=== PATIENT | male | born 1960 | race African-American/Black ===

== ENCOUNTER 2017-11-14 23:55 | Inpatient (IN) | payer MEDICARE ==
[~2017-11-14] VITALS: Ht 160 cm; Wt 61.1 kg
--- NOTE | ~2017-11-14 | OP ---
PATIENT NAME: EHSAN JAMES MEDICAL RECORD: [id number] :62 LOCATION:D.M2 D.2109 ADMISSION DATE:11/15/17 SURGEON: PERLA CALVO MD DATE OF OPERATION: 11/19/2017 REFERRING PHYSICIAN: Dr. Maravilla and Dr. Phipps and Dr. Real. PREOPERATIVE DIAGNOSES: Superior vena cava syndrome along with end-stage renal disease and other mechanical complication of arterial venous fistula. OPERATION PERFORMED: Removal and replacement of right internal jugular tunneled HemoSplit dialysis catheter and superior vena cavogram. Then, ultrasound-guided access of left upper extremity brachiobasilic AV fistula and balloon angioplasty of superior vena cava stenosis and fistulogram. SURGEON: Perla Calvo MD ANESTHESIA: General endotracheal. PREOPERATIVE NOTE: Mr. James is an unfortunate patient from [facility]. He is 57 years old. He has end-stage renal disease and is on chronic hemodialysis in [place]. He has a tunneled dialysis catheter in his right internal jugular vein position and also has a functioning left brachiobasilic AV fistula, which has been minimally translocated and he has 2 old grafts in the left arm brachial axillary or brachial basilic additionally. He is a poor historian. He says that his fistula has been being accessed. At any rate, he is brought to the operating room at this time for angiography and hopefully angioplasty of the central vein stenosis present to relieve his superior vena cava syndrome. The patient may require balloon expanded stent graft to treat central vein stenosis, if not at this sitting then perhaps at the next. PROCEDURE IN DETAIL: With the patient under general endotracheal anesthesia in supine position, he was prepped and draped in a sterile manner. I first removed the right internal jugular tunneled dialysis catheter over a guidewire and performed a superior venacavogram, which demonstrated a significant stenosis of about 50% or more involving the superior vena cava immediately below the confluence of the brachiocephalic veins. I then went to the left arm and accessed the left brachiobasilic AV fistula. This was done with ultrasound guidance and advanced a guidewire and catheter to the subclavian vein and repeated the superior vena cavogram. The quality of the imaging from the C-arm this evening was rather poor and I do not know what exactly the malfunction was, but the images were barely adequate. I did not see any evidence of any other central vein stenosis and I was able to place the diagnostic catheter in the internal jugular vein and in the brachiocephalic vein and performed additional contrast injections without finding of other pathology. I then advanced a 0.035 guidewire across the superior vena cava stenosis and into the inferior vena cavogram and then passed an [place] angioplasty balloon 14 mm x 4 cm and dilated the superior vena cava stenosis. This demonstrated a waist with full effacement at only 2 atmospheres. Subsequent contrast injections were unclear or really not diagnostic, but it appears that the stenosis was successfully dilated. Whether there is residual or not, I could not tell how much from the images we were able to get. I removed the hardware from the left arm and obtained hemostasis there at the insertion site with a [id number]-wu-[id number] Prolene suture. I then inserted a new HemoSplit tunneled dialysis catheter 19 cm in length. Using the guidewire already in place in the right internal jugular vein, the catheter OPERATIVE REPORT [id number] EHSAN JAMES passed nicely into the right atrium. Contrast studies were done, which confirmed at least proper positioning in the right atrium at the tip of the catheter. The catheter lumens were both accessed and aspirated, free return of blood from each was confirmed. They were then flushed with saline and then Hep-Lock solution, clamped and capped. The catheter was sutured to the skin near the entry site with 2-0 Prolene. The cervical incision was closed with interrupted inverted subcuticular 3-0 Vicryl and Dermabond glue. That site was dressed with Maxorb Ag, Tegaderm and Cavilon skin prep. A chlorhexidine Biopatch was placed over the catheter at the exit site and that was dressed then with a standard CVL dressing. At that point with a functional TVC in the right IJV and a functioning though awkward left upper extremity brachiobasilic AV fistula, he was awakened and extubated and taken to the recovery room in stable condition. Blood loss during the operation was insignificant and unreplaced. All sponges, instruments and needles were accounted for. No drain was used and no surgical specimen was submitted for histopathology. The patient will be kept in head up or reverse Trendelenburg or Matam[place]os position overnight. He will have dialysis tomorrow and hopefully his head and neck and upper extremity edema will resolve as a result of the superior vena cava angioplasty. This will likely need to be repeated and if it needs to be repeated frequently or if it is clear on subsequent imaging that this is a very elastic stenosis, then it may be advisable to place a balloon expandable stent in the superior vena cava. Also, I will need to discuss with radiology the quality of the imaging done this evening and see if there is anything we need to do to fix it such as have a C-arm service. TRANSINT:[id number] Voice Confirmation ID: [id number] DOCUMENT ID: [id number] PERLA CALVO MD at 1241 CC: LOBO REAL and LOBO PHIPPS [id number] DICTATION DATE: 12/05/17 1024 BAG CUTTER: 12/05/17 1434 DIS IN 11/21/17 [id number] [place] [address]
[~2017-11-14 23:55] MED LIST: COZAAR100 MG PO; METOPROLOL TART50 MG PO; NEURONTIN 300300 MG PO; NORCO 7.5/325 T1 TA1 PO; NORVASC2.5 MG PO; OMEPRAZOLE20 M1 PO; PHOSLO667 MG PO; RENVELA800 MG PO; SENSIPAR60 MG PO; ULTRAM50 MG PO; ZYLOPRIM100 MG PO
[2017-11-15 01:00] VITALS: BP 101/65
[2017-11-15] MEDS ORDERED: VENTOLIN HFA18 GM INH (01:03)
[2017-11-15] MEDS ORDERED: RENA-VITE TABL0.8 MG PO (01:04)
[2017-11-15] MEDS ORDERED: MULTAQ400 MG PO (01:05)
[2017-11-15] MEDS ORDERED: ELIQUIS2.5 MG PO (01:06)
[2017-11-15] MEDS ORDERED: BAYER CHEWABLE81 MG PO (01:09)
[2017-11-15] MEDS ORDERED: PRAVACHOL40 MG PO (01:10)
[2017-11-15 03:54] VITALS: BP 118/73; BMI 23.5
[2017-11-15 04:30] VITALS: BP 130/64
[2017-11-15 08:12] LABS: BASOPHILS 0 % (0-2); EOSINOPHILS 4.3 % (0-7); HEMATOCRIT 37.9 % (42.0-54.0); HEMOGLOBIN 12.4 g/dL (13.5-17.5); IMMATURE GRANULOCYTES 1.1 % (0-5); LYMPHOCYTES 23.3 % (15-50); MCHC 32.7 g/dL (31.0-37.0); MCV 88.8 fL (80.0-100.0); MEAN PLATELET VOLUME 9.8 fL (7.4-10.4); MONOCYTES 19.7 % (2-11); NEUTROPHILS 51.6 % (40-80); RBC 4.27 10x6/uL (4.20-6.10); RDW 18.1 % (11.5-14.5); WBC 6.3 10x3/uL (4.8-10.8)
[2017-11-15 08:13] LABS: PLATELET COUNT 243 10x3/uL (130-400)
[2017-11-15 08:21] LABS: INR 1.45 (0.85-1.17); PROTIME 17.2 SECONDS (11.6-15.0)
[2017-11-15 08:43] LABS: ALBUMIN 2.9 g/dL (3.4-5.0); ANION GAP 18.3 mmol/L (8-16); BILIRUBIN - TOTAL 0.7 mg/dL (0.2-1.3); CARBON DIOXIDE 22.4 mmol/L (21.0-32.0); CREATININE - SERUM 12.6 mg/dL (0.6-1.3); POTASSIUM - SERUM 4.7 mmol/L (3.5-5.1); PROTEIN - SERUM 6.7 g/dL (6.4-8.2)
[2017-11-15 08:59] VITALS: BP 102/60
[2017-11-15 10:28] VITALS: BMI 23.3
[2017-11-15 12:00] VITALS: BP 103/69
[2017-11-15 12:09] VITALS: Ht 160 cm; Wt 61.1 kg
[2017-11-15 16:50] VITALS: BP 130/82
[2017-11-16 01:00] VITALS: BP 121/62
[2017-11-16 05:30] VITALS: BP 95/60
[2017-11-16 05:32] LABS: ANION GAP 18.1 mmol/L (8-16); CALCIUM 8.8 mg/dL (8.5-10.1); CARBON DIOXIDE 24.4 mmol/L (21.0-32.0); CREATININE - SERUM 9.8 mg/dL (0.6-1.3); POTASSIUM - SERUM 4.5 mmol/L (3.5-5.1)
[2017-11-16 05:33] LABS: BASOPHILS 0.1 % (0-2); EOSINOPHILS 2.6 % (0-7); HEMATOCRIT 38.3 % (42.0-54.0); HEMOGLOBIN 12.6 g/dL (13.5-17.5); IMMATURE GRANULOCYTES 0.5 % (0-5); LYMPHOCYTES 21.9 % (15-50); MCH 29.1 pg (26.0-34.0); MCHC 32.9 g/dL (31.0-37.0); MCV 88.5 fL (80.0-100.0); MONOCYTES 20.7 % (2-11); NEUTROPHILS 54.2 % (40-80); PLATELET COUNT 223 10x3/uL (130-400); RBC 4.33 10x6/uL (4.20-6.10); RDW 18.1 % (11.5-14.5); WBC 7.4 10x3/uL (4.8-10.8)
[2017-11-16 08:54] VITALS: BP 96/52
[2017-11-16 12:33] VITALS: BP 86/46
[2017-11-16 16:34] VITALS: BP 118/69
[2017-11-16 20:00] VITALS: BP 98/51
[2017-11-17 01:00] VITALS: BP 117/61
[2017-11-17 05:00] LABS: BASOPHILS 0.2 % (0-2); EOSINOPHILS 4.6 % (0-7); HEMATOCRIT 36.6 % (42.0-54.0); HEMOGLOBIN 12.1 g/dL (13.5-17.5); IMMATURE GRANULOCYTES 0.3 % (0-5); LYMPHOCYTES 34.8 % (15-50); MCH 28.9 pg (26.0-34.0); MCHC 33.1 g/dL (31.0-37.0); MCV 87.6 fL (80.0-100.0); MEAN PLATELET VOLUME 9.7 fL (7.4-10.4); MONOCYTES 17.7 % (2-11); NEUTROPHILS 42.4 % (40-80); PLATELET COUNT 207 10x3/uL (130-400); RBC 4.18 10x6/uL (4.20-6.10); RDW 18.2 % (11.5-14.5); WBC 5.9 10x3/uL (4.8-10.8)
[2017-11-17 05:27] LABS: ANION GAP 19.3 mmol/L (8-16); CALCIUM 9.1 mg/dL (8.5-10.1); CARBON DIOXIDE 24.7 mmol/L (21.0-32.0); CREATININE - SERUM 12.1 mg/dL (0.6-1.3)
[2017-11-17 06:11] VITALS: BP 122/70
[2017-11-17 09:04] VITALS: BP 112/69
[2017-11-17 11:35] VITALS: BP 135/75
[2017-11-17 15:36] VITALS: BP 132/67
[2017-11-17 20:00] VITALS: BP 123/67
[2017-11-18 01:00] VITALS: BP 115/80
[2017-11-18 04:44] LABS: BASOPHILS 0.2 % (0-2); EOSINOPHILS 4.3 % (0-7); HEMATOCRIT 38.1 % (42.0-54.0); HEMOGLOBIN 12.6 g/dL (13.5-17.5); IMMATURE GRANULOCYTES 0.6 % (0-5); MCHC 33.1 g/dL (31.0-37.0); MCV 87.6 fL (80.0-100.0); MEAN PLATELET VOLUME 9.8 fL (7.4-10.4); MONOCYTES 18.1 % (2-11); NEUTROPHILS 50.8 % (40-80); PLATELET COUNT 211 10x3/uL (130-400); RBC 4.35 10x6/uL (4.20-6.10); RDW 18.2 % (11.5-14.5); WBC 6.3 10x3/uL (4.8-10.8)
[2017-11-18 05:00] VITALS: BP 98/60
[2017-11-18 05:17] LABS: CALCIUM 9.5 mg/dL (8.5-10.1); CARBON DIOXIDE 22.7 mmol/L (21.0-32.0); CREATININE - SERUM 13.7 mg/dL (0.6-1.3)
[2017-11-18 06:05] LABS: ANION GAP 23.1 mmol/L (8-16); POTASSIUM - SERUM 4.8 mmol/L (3.5-5.1)
[2017-11-18 08:48] VITALS: BP 122/79
[2017-11-18 16:40] VITALS: BP 132/65
[2017-11-18 20:11] VITALS: BP 102/74
[2017-11-19] VITALS: BP 108/61
[2017-11-19 05:32] VITALS: BP 107/68
[2017-11-19 05:41] LABS: BASOPHILS 0.2 % (0-2); HEMATOCRIT 37.7 % (42.0-54.0); HEMOGLOBIN 12.5 g/dL (13.5-17.5); IMMATURE GRANULOCYTES 0.4 % (0-5); LYMPHOCYTES 24.7 % (15-50); MCH 29.1 pg (26.0-34.0); MCHC 33.2 g/dL (31.0-37.0); MCV 87.7 fL (80.0-100.0); MEAN PLATELET VOLUME 9.7 fL (7.4-10.4); NEUTROPHILS 53.7 % (40-80); PLATELET COUNT 190 10x3/uL (130-400); RDW 18.1 % (11.5-14.5); WBC 5.3 10x3/uL (4.8-10.8)
[2017-11-19 05:52] LABS: INR 1.32 (0.85-1.17); PROTIME 15.9 SECONDS (11.6-15.0)
[2017-11-19 05:57] LABS: ANION GAP 20.5 mmol/L (8-16); CALCIUM 9.3 mg/dL (8.5-10.1); CARBON DIOXIDE 24.9 mmol/L (21.0-32.0); CREATININE - SERUM 11.8 mg/dL (0.6-1.3); POTASSIUM - SERUM 4.4 mmol/L (3.5-5.1)
[2017-11-19 07:50] VITALS: BP 110/82
[2017-11-19 11:58] VITALS: BP 112/59
[2017-11-19 16:47] VITALS: BP 128/80
[2017-11-19 20:07] VITALS: BP 114/75
[2017-11-20 00:28] VITALS: BP 121/84
[2017-11-20 05:41] VITALS: BP 117/75
[2017-11-20 05:47] LABS: BASOPHILS 0.1 % (0-2); EOSINOPHILS 2.5 % (0-7); HEMATOCRIT 33.9 % (42.0-54.0); HEMOGLOBIN 10.9 g/dL (13.5-17.5); IMMATURE GRANULOCYTES 0.3 % (0-5); LYMPHOCYTES 19.3 % (15-50); MCH 28.3 pg (26.0-34.0); MCHC 32.2 g/dL (31.0-37.0); MCV 88.1 fL (80.0-100.0); MEAN PLATELET VOLUME 10.3 fL (7.4-10.4); MONOCYTES 14.5 % (2-11); NEUTROPHILS 63.3 % (40-80); PLATELET COUNT 182 10x3/uL (130-400); RBC 3.85 10x6/uL (4.20-6.10); RDW 18.1 % (11.5-14.5); WBC 6.7 10x3/uL (4.8-10.8)
[2017-11-20 06:14] LABS: CALCIUM 9.1 mg/dL (8.5-10.1); CARBON DIOXIDE 22.9 mmol/L (21.0-32.0); CREATININE - SERUM 13.7 mg/dL (0.6-1.3)
[2017-11-20 06:17] LABS: ANION GAP 20.8 mmol/L (8-16); POTASSIUM - SERUM 5.7 mmol/L (3.5-5.1)
[2017-11-20 09:16] VITALS: BP 129/83
[2017-11-20 17:05] VITALS: BP 113/68
[2017-11-20 21:25] VITALS: BP 116/76
[2017-11-21 00:50] VITALS: BP 107/70
[2017-11-21 04:50] VITALS: BP 99/64
[2017-11-21 05:53] LABS: BASOPHILS 0.2 % (0-2); EOSINOPHILS 4.3 % (0-7); HEMATOCRIT 33.1 % (42.0-54.0); HEMOGLOBIN 10.8 g/dL (13.5-17.5); IMMATURE GRANULOCYTES 0.2 % (0-5); MCH 28.5 pg (26.0-34.0); MCHC 32.6 g/dL (31.0-37.0); MCV 87.3 fL (80.0-100.0); MEAN PLATELET VOLUME 9.8 fL (7.4-10.4); MONOCYTES 22.3 % (2-11); PLATELET COUNT 157 10x3/uL (130-400); RBC 3.79 10x6/uL (4.20-6.10); WBC 5.4 10x3/uL (4.8-10.8)
[2017-11-21 06:10] LABS: ANION GAP 19.9 mmol/L (8-16); CALCIUM 9.1 mg/dL (8.5-10.1); CARBON DIOXIDE 22.8 mmol/L (21.0-32.0); CREATININE - SERUM 10.5 mg/dL (0.6-1.3); POTASSIUM - SERUM 4.7 mmol/L (3.5-5.1)
[2017-11-21 08:08] VITALS: BP 125/73
[2017-11-21 11:06] VITALS: BP 126/78
== END 2017-11-21 16:17 | disposition home or self-care (01) | DRG 252 ==
LOC: D.M2 23:55
PROVIDERS: Family Medicine; Internal Medicine Nephrology; Surgery
PROC: 5A1D70Z Performance of Urinary Filtration, Intermittent, Less than 6 Hours Per Day (ICD-10-PCS; 2017-11-15)
PROC: 027V3ZZ Dilation of Superior Vena Cava, Percutaneous Approach (ICD-10-PCS; 2017-11-19)
PROC: 05PY33Z Removal of Infusion Device from Upper Vein, Percutaneous Approach (ICD-10-PCS; 2017-11-19)
PROC: 02H633Z Insertion of Infusion Device into Right Atrium, Percutaneous Approach (ICD-10-PCS; 2017-11-19)
PROC: B5181ZZ Fluoroscopy of Superior Vena Cava using Low Osmolar Contrast (ICD-10-PCS; 2017-11-19)
PROC: B51W1ZZ Fluoroscopy of Dialysis Shunt/Fistula using Low Osmolar Contrast (ICD-10-PCS; principal; 2017-11-19 13:30)
DX: I87.1 Compression of vein (principal); N18.6 End stage renal disease; I13.2 Hypertensive heart and chronic kidney disease with heart failure and with stage 5 chronic kidney disease, or end stage renal disease; N25.81 Secondary hyperparathyroidism of renal origin; I50.9 Heart failure, unspecified; Z99.2 Dependence on renal dialysis; K21.9 Gastro-esophageal reflux disease without esophagitis; D63.1 Anemia in chronic kidney disease; I48.91 Unspecified atrial fibrillation; Z72.0 Tobacco use

== ENCOUNTER 2018-01-28 07:18 | Day surgery (SDC) | payer MEDICARE ==
[~2018-01-28] VITALS: Ht 167.6 cm; Wt 63.5 kg
--- NOTE | ~2018-01-28 | OP ---
PATIENT NAME: EHSAN JAMES MEDICAL RECORD: [id number] :62 LOCATION:FRANTZ ADMISSION DATE: SURGEON: PERLA CALVO MD DATE OF OPERATION: 01/28/2018 REFERRED BY: Dr. Rivas and Dr. Real PREOPERATIVE DIAGNOSES: End-stage renal disease on dialysis and dependence on hemodialysis and difficulty of cannulation of his left arm brachial artery basilic vein fistula. POSTOPERATIVE DIAGNOSES: End-stage renal disease on dialysis and dependence on hemodialysis and difficulty of cannulation of his left arm brachial artery basilic vein fistula. OPERATION PERFORMED: Left arm AV fistulogram. SURGEON: Perla Calvo MD ANESTHESIA: General with LMA per Dr. Blount. PREOPERATIVE NOTE: Ehsan James is a 57-year-old -[place] male patient with end-stage renal disease, on chronic hemodialysis. He is presently dialyzing with a left to partially translocated basilic AV fistula. He has had grafts in the left arm before and the successful creation of this fistula, I think was a coup, however, there was little opportunity I think to be able to mobilize and fully translocate the vein as would be ideal. He has been referred back up to us today because of a problem at the dialysis unit with a difficult cannulation. The patient has, earlier this year, presented with a superior vena cava obstruction, in part aggravated by the presence of a tunneled dialysis catheter. I performed an angiogram and balloon angioplasty of his superior vena cava and subsequently his symptoms resolved and his catheter has been removed. He is to have the procedure at [facility] today because of the possibility he will require stenting of superior vena cava or other central vein. Otherwise, he could be done at [facility]. Under anesthesia in supine position, the patient was prepped and draped in a sterile manner. Ultrasound was used to examine the fistula in his left arm. I saw no evidence of stenosis. There was good flow. The fistula was accessed with micropuncture technique using ultrasound guidance and eventually a 7-Swedish introducer was placed. Contrast injection was performed, which revealed good flow in the fistula without any obstruction or stenosis. Flow seemed to be slow in the subclavian vein with I thought possibly a stenosis of the subclavian or brachiocephalic vein. I introduced a diagnostic catheter up into the central venous system and performed additional contrast injections and demonstrated that there was no stenosis of the subclavian brachiocephalic veins or of the superior vena cava. The hardware was removed and hemostasis obtained with a wqcgky-pp-emhgt 4-0 Prolene suture. Sterile dressing was applied and the patient was awakened from his anesthetic and was returned to the recovery room. There was minimal or really no blood loss during the procedure. All sponges, instruments and needles were accounted for. No drain was used and no surgical specimen submitted for histopathology. I think the patient's difficult cannulation is simply related to the difficult OPERATIVE REPORT [id number] EHSAN JAMES anatomy and his arm. I see little at this point that can be done for that. We will be happy to see him again if his problem continues or worsens. We must also be alert to the potential recurrence of superior vena cava obstruction, although there was none now. TRANSINT:[id number] Voice Confirmation ID: [id number] DOCUMENT ID: [id number] [facility]: [facility] JEFF Horan. PERLA CALVO MD at 1410 CC: LOBO REAL [id number] DICTATION DATE: 01/28/18 1208 GAMBLING BROKER: 01/28/18 1230 [facility] 01/28/18 [facility] [address] [place] [address]
[~2018-01-28 07:18] MED LIST changes: +BAYER CHEWABLE81 MG PO; +ELIQUIS2.5 MG PO; +MULTAQ400 MG PO; +PRAVACHOL40 MG PO; +RENA-VITE TABL0.8 MG PO; +VENTOLIN HFA18 GM INH
[2018-01-28 07:37] LABS: BASOPHILS 0.6 % (0-2); EOSINOPHILS 9.7 % (0-7); HEMATOCRIT 37.5 % (42.0-54.0); HEMOGLOBIN 11.8 g/dL (13.5-17.5); IMMATURE GRANULOCYTES 0.2 % (0-5); LYMPHOCYTES 37.5 % (15-50); MCHC 31.5 g/dL (31.0-37.0); MCV 92.1 fL (80.0-100.0); MONOCYTES 14.2 % (2-11); NEUTROPHILS 37.8 % (40-80); RBC 4.07 10x6/uL (4.20-6.10); RDW 19.5 % (11.5-14.5); WBC 5.1 10x3/uL (4.8-10.8)
[2018-01-28 07:38] LABS: PLATELET COUNT 192 10x3/uL (130-400)
[2018-01-28 07:45] LABS: ANION GAP 12.9 mmol/L (8-16); CALCIUM 9.1 mg/dL (8.5-10.1); CARBON DIOXIDE 29.4 mmol/L (21.0-32.0); CREATININE - SERUM 6.5 mg/dL (0.6-1.3); POTASSIUM - SERUM 4.3 mmol/L (3.5-5.1)
[2018-01-28 07:46] LABS: APTT 36.6 SECONDS (22.8-39.4); INR 1.48 (0.85-1.17); PROTIME 17.4 SECONDS (11.6-15.0)
[2018-01-28 08:49] VITALS: BP 99/69; Ht 167.6 cm; Wt 63.5 kg
== END 2018-01-28 13:16 | disposition home or self-care (01) ==
LOC: D.OPS 07:18
PROVIDERS: Surgery
DX: T82.590A Other mechanical complication of surgically created arteriovenous fistula, initial encounter (principal); Y83.8 Other surgical procedures as the cause of abnormal reaction of the patient, or of later complication, without mention of misadventure at the time of the procedure; I12.0 Hypertensive chronic kidney disease with stage 5 chronic kidney disease or end stage renal disease; N18.6 End stage renal disease; Z99.2 Dependence on renal dialysis; Z01.812 Encounter for preprocedural laboratory examination

== ENCOUNTER 2018-05-27 13:55 | Inpatient (IN) | payer MEDICARE ==
[~2018-05-27] VITALS: Ht 167.6 cm; Wt 54.1 kg
--- NOTE | ~2018-05-27 | MORECARE ---
CASE MANAGEMENT DISCHARGE SUMMARY PATIENT: EHSAN WEST UNIT: [id number] ADM DATE: 05/27/18 AGE: 57 : 62 SEX: M ROOM/BED: D.1209 AUTHOR: EDUARDO ABDI PHYSICIAN: REFERRING PHYSICIAN: MELBA MELGAR MD DATE OF SERVICE: 05/28/18 Discharge Plan Patient Name: EHSAN WEST Facility: [facility]:[place] : 1960 Planned Disposition: Anticipated Discharge Date: Discharge Date: Expected LOS: Initial Reviewer: [email or web address] Initial Review Date: 05/27/2018 Generated: 05/28/18 1:14 pm Patient Name: EHSAN WEST Page [phone] at 1214 All edits/amendments must be made on the electronic document DICTATION DATE: 05/28/18 1213 SENIOR SOLUTIONS ARCHITECT: BAKARI 05/28/18 1213 RPT#: [id number] DC DATE: STATUS: ADM IN [facility] [address] [place] [address] END OF REPORT
--- NOTE | ~2018-05-27 | CN ---
PATIENT NAME:EHSAN WEST MEDICAL RECORD: [id number] : 62 [facility] AD[facility] DATE: 05/27/18 ACCOUNT: [id number] CONSULTING PHYSICIAN: KARENA LOMBARDI MD REFERRING PHYSICIAN: MELBA MELGAR MD DATE OF CONSULTATION: 05/28/2018 CARDIOLOGY CONSULTATION DIAGNOSES: 1. Preoperative evaluation cholecystectomy. 2. Cardiomyopathy. 3. Hyperlipidemia. 4. End-stage renal failure, on dialysis. HISTORY OF PRESENT ILLNESS: Mr. West is a gentleman from [place], who we have not seen in the past. He was told that he has a cardiomyopathy, ejection fraction 30%. Cardiac catheterization revealed that this is a nonischemic cardiomyopathy. He has basically class 0 symptomatology from a heart failure standpoint, having no anginal symptomatology. PHYSICAL EXAMINATION: GENERAL APPEARANCE: Well-nourished, well-developed, appears stated age. Level of distress, comfortable. PSYCHIATRIC: Mental status, alert, normal affect. Orientation, oriented to time, place and person. EYES: Lids and conjunctiva, noninjected. No discharge, no pallor. ENT: Lips, teeth, gums, normal dentition. Oropharynx, no cyanosis, no pallor. NECK: Carotid arteries, bilateral normal upstroke, no bruits, no thrills. JUGULAR VEINS: No jugular venous pressure or distention. CERVICAL LYMPH NODES: Nontender, nonenlarged. THYROID: Not enlarged. Nontender. No nodules. LUNGS: Respiratory effort, unlabored. CHEST: Normal curvature. No thoracic deformity. No chest wall tenderness. Percussion, resonant. Auscultation, clear. No wheezes, no rales, no rhonchi. CARDIOVASCULAR: Precordial exam, nondisplaced. No heaves or pericardial thrills. Rate and rhythm, regular. Heart sounds, normal S1, normal S2. No S3, no gallop, no rub. Systolic murmur, not heard. Diastolic murmur, not heard. EXTREMITIES: No cyanosis, no edema. Peripheral pulses, full and equal in all extremities, except as noted. No bruits appreciated. ABDOMEN: Soft, nondistended. Normal aorta. No bruit. Nontender. No masses. Liver, nontender, no hepatomegaly. Spleen, nontender, no splenomegaly. MUSCULOSKELETAL: No joint tenderness. No joint swelling. No erythema. NEUROLOGICAL: Normal gait, normal strength, normal tone. SKIN: Warm and dry. OVERALL IMPRESSION: Nonischemic cardiomyopathy. At this time, he is low risk for surgery. Proceed with surgery. Just have minimal use of IV fluids in the perioperative and postoperative phase to avoid pulmonary edema due to the cardiomyopathy. We will repeat echocardiogram to get an accurate and recent ejection fraction. Other than that, no other cardiac workup or treatment is necessary prior to the surgery. TRANSINT:[id number] Voice Confirmation ID: [id number] DOCUMENT ID: [id number] CONSULT REPORT [id number] EHSAN WEST JEFFREY MD at 1816 CC: [id number] DICTATION DATE: 05/28/18 1201 FIRE LIEUTENANT: 05/28/18 1215 ADM IN [id number] [place] [address]
--- NOTE | ~2018-05-27 | EC ---
PATIENT:EHSAN WEST DATE OF SERVICE: 05/27/18 SEX: M MEDICAL RECORD: [id number] DATE OF : 62 LOCATION:D. D.120 AGE OF PATIENT: 57 ADMISSION DATE: 05/27/18 REFERRING PHYSICIAN: INTERPRETING PHYSICIAN: KARENA BAEZ MD ECHOCARDIOGRAM REPORT ECHO CHARGES 4 ECHO COMPLETE Date: 05/28/18 CLINICAL DIAGNOSIS: SOB ECHOCARDIOGRAPHIC MEASUREMENTS (adult normal given) AC root (d.<3.7cm) 4.2 cm LV Septum d (<1.2 cm> 1.6 cm Valve Excursion 2.2 cm LV Septum (systole) 2.2 cm Left Atria (s.<4.0cm> 5.3 cm LVPW d(<1.2cm) 1.7 cm RV (d.<2.3cm) 2.6 cm LVPW (sytole) 2.2 cm LV diastole(<5.6CM) 6.3 cm MV E-F(>70mm/sec) cm LV systole 4.3 cm LVOT Diameter 2.2 cm MV exc.(>10mm) cm Est.ejection fraction (50-75%) % DOPPLER: LVIT cm/sec A 43.0 cm/sec E 142 cm/sec LA cm/sec RVSP 33.2 mmHg LVOT 121 cm/sec AOP1/2T 494.0m/s Asc. Ao 226 cm/sec RVOT 64.0 cm/sec RA cm/sec PA 100 cm/sec AV Gradient Peak 20.4 mmHg AV Mean 9.0 mmHg AV Area 2.6 cm MV Gradient Peak 15.0 mmHg MV Mean 5.3 mmHg MV Area cm COMMENTS: Lactation Coordinator: John PAYNEOE Pillowcase Turner: 1 Dr. Baez TAPE# PACS Pericardial Effusion N DATE OF SERVICE: 05/28/2018 FINDINGS: 1. Left ventricular chamber size is dilated. Left ventricular systolic function is mildly to moderately reduced. Overall ejection fraction estimated at 35% to 40%. 2. Left atrium is enlarged at 5.3 cm. Right atrium and right ventricular chamber sizes are severely dilated. 3. Valvular structures have normal structure and motion. 4. Doppler interrogation reveals [id number]-fh-qipylg aortic insufficiency, mild ECHOCARDIOGRAM REPORT [id number] EHSAN WEST mitral regurgitation, and severe tricuspid regurgitation. No other valvular insufficiency or stenosis. Overall pulmonary pressure estimated at 33 mmHg. TRANSINT:[id number] Voice Confirmation ID: [id number] DOCUMENT ID: [id number] KARENA BAEZ MD at 1816 CC: [id number] DICTATION DATE: 05/28/18 1317 BARIATRIC PHYSICIAN: 05/28/18 1324 ADM IN [facility] [address] [id number]
--- NOTE | ~2018-05-27 | OP ---
PATIENT NAME: EHSAN WEST MEDICAL RECORD: [id number] :62 LOCATION:D.M3 D.1209 ADMISSION DATE:05/27/18 SURGEON: JAMES YUEN MD DATE OF OPERATION: 05/29/2018 PREOPERATIVE DIAGNOSES: 1. Acute cholecystitis. 2. Hyperbilirubinemia. 3. Atrial fibrillation. 4. Chronic kidney disease on dialysis. 5. Hypertension. 6. Ventral hernia. POSTOPERATIVE DIAGNOSES: 1. Acute cholecystitis. 2. Hyperbilirubinemia. 3. Atrial fibrillation. 4. Chronic kidney disease on dialysis. 5. Hypertension. 6. Ventral hernia. PROCEDURES: 1. Laparoscopic cholecystectomy with intraoperative cholangiogram. 2. Fluoroscopic interpretation. 3. Ruddy-Cut liver biopsy. 4. Ventral hernia repair without mesh. SURGEON: James Yuen MD ACID EXTRACTOR: Priti Lucero APRN REPORT OF OPERATION: The patient's abdomen was prepped and draped in sterile fashion. A cutdown was made on the superior aspect of the umbilicus, 0 Vicryls were placed in the fascia bilaterally and the fascia was incised with 15-blade. I then bluntly entered the peritoneal cavity and placed a 12-mm Jakub port. Under direct visualization, a 5 mm trocar was placed in the epigastrium through the indwelling hernia defect. Another two 5-mm trocars were placed in the right subcostal region. The gallbladder was noted to be distended and swollen. We aspirated the gallbladder to allow more easy mobility. The cystic artery and cystic duct were eventually dissected free. There were some attachments of the patient's colon to the infundibulum of the gallbladder and this had to be teased down carefully with blunt dissection. The cystic duct was clipped twice proximally and a small opening was made. A Cook cholangiocath was brought through the anterior abdominal wall and placed in the distal cystic duct. A cholangiogram was performed, which showed dilation of the common and hepatic ducts leading down to a normal taper of the sphincter of Oddi with contrast exiting out into the duodenum appropriately. There were no signs of any strictures, masses, or lesions visible. At this point, the Cook cholangiocath was removed. The cystic duct was clipped 3 times distally and ligated in standard fashion. The artery was clipped proximally and distally and ligated. We then took the gallbladder off the liver bed and placed into an Endo Catch bag. A liver biopsy tool was brought through the anterior abdominal wall and 4 Ruddy-Cut biopsy cores were removed from the patient's right lobe of the liver. Any bleeding from these were treated with electrocautery. We then irrigated out the abdomen and assured there was no sign of any bleeding or bile leakage. At OPERATIVE REPORT [id number] EHSAN WEST this point, the ports and insufflation were then removed. I then extended the incision overlying the hernia defect in the epigastrium. The ventral hernia defect was noted to be a little over 1 cm in size. We freed up the hernia sac and placed all the contents back into the abdominal cavity. The hernia defect was reapproximated with a bgtvgh-ts-wdtdt 0 Prolene. There was good approximation of the tissue. We then irrigated out the wounds with normal saline and infused a total of 10 mL of 0.25% Marcaine with epinephrine. The skin incisions were all closed with subcutaneous 5-0 Monocryl and dressed appropriately. COMPLICATIONS: None. CONDITION: Stable. ANESTHESIA: General endotracheal and local. BLOOD LOSS: Minimal. TRANSINT:[id number] Voice Confirmation ID: [id number] DOCUMENT ID: [id number] JAMES YUEN MD at 1538 CC: [id number] DICTATION DATE: 05/29/18 1038 MONEY EXAMINER: 05/29/18 1051 DIS IN 05/31/18 [address] [place] [address]
--- NOTE | ~2018-05-27 | MORECARE ---
CASE MANAGEMENT DISCHARGE SUMMARY PATIENT: EHSAN WEST UNIT: [id number] ADM DATE: 05/27/18 AGE: 57 : 62 SEX: M ROOM/BED: D.1209 AUTHOR: EDUARDO ABDI PHYSICIAN: REFERRING PHYSICIAN: MELBA MELGAR MD DATE OF SERVICE: 05/31/18 Discharge Plan Patient Name: EHSAN WEST Facility: [facility]:[place] : 1960 Planned Disposition: Home Anticipated Discharge Date: 05/31/18 Discharge Date: 05/31/2018 Expected LOS: 4 Initial Reviewer: [email or web address] Initial Review Date: 05/27/2018 Generated: 05/31/18 5:11 pm Comments DCP- Discharge Planning Updated by [id number]: Miley Arambula on 05/30/18 2:[address] CM attempted to see patient again today patient gone for procedure at this time. CM will continue to follow and assist with discharge planning / needs. Last DP export: 05/30/18 2:39 p Patient Name: EHSAN WEST Page [id number] at 1611 All edits/amendments must be made on the electronic document DICTATION DATE: 05/31/181609 SEAMING MACHINE OPERATOR: BAKARI 05/31/18 161 RPT#: [id number] DC DATE:05/31/18 [facility]US[facility] [address] [place] [address] END OF REPORT
--- NOTE | ~2018-05-27 | MORECARE ---
CASE MANAGEMENT DISCHARGE SUMMARY PATIENT: EHSAN WEST UNIT: [id number] ADM DATE: 05/27/18 AGE: 57 : 62 SEX: M ROOM/BED: D.1209 AUTHOR: TRINIDAD,DOC PHYSICIAN: REFERRING PHYSICIAN: MELBA MELGAR MD DATE OF SERVICE: 05/31/18 Discharge Plan Patient Name: EHSAN WEST Facility: [facility]:[place] : 1960 Planned Disposition: Home Anticipated Discharge Date: 05/31/18 Discharge Date: 05/31/2018 Expected LOS: 4 Initial Reviewer: [email or web address] Initial Review Date: 05/27/2018 Generated: 05/31/18 5:43 pm Comments DCP- Discharge Planning Updated by [email or web address]: Lupis Dunbar on 05/31/18 3:[address] LATE ENTRY 1315 CM MET WITH PATIENT REGARDING DISCHARGE PLANS AND NEEDS. CM INTRODUCED SELF AND EXPLAINED ROLE OF CM . PATIENT STATED HE DID NOT NEED HOME HEALTH OR SERVICES IF HE DID HE KNEW HOW TO GET THEM. HE GAVE PERMISSION FOR CM TO SPEAK WITH HIS SISTER HE WAS WATCHING TV. HE WOULD NOT MAKE EYE CONTACT WITH CM WHILE SPEAKING WITH CM. HE HAD STATED HE LIVES WITH HIS SISTER, JOAN. SHE IS AT [facility]ED[facility] AND STATES HER NAME IS ADAIR WEST. SHE WILL PROVIDE TRANSPORTATION TO HOME. HE HAS TRANSPORTATION TO HEMODIALYSIS [facility]. PCP- NURSING ASSESSMENT STATES PCP- DR BOUCHER. PATIENT STATED HE SEES JONATHAN CARRANZA. PHARMACY- [facility] IN [place] DME- [facility]. DENIES ANY ADDITIONAL DME. PATIENT AND HIS SISTER DENIES ANY NEEDS. CM EXPLAINED DISCHARGE IMM. PATIENT AND SISTER STATED THEY UNDERSTOOD. PATIENT STATED TO HAVE HIS SISTER SIGN. DCP- Discharge Planning Updated by [email or web address]: Miley Arambula on 05/30/18 2:[address] CM attempted to see patient again today patient gone for procedure at this time. CM will continue to follow and assist with discharge planning / needs. DCPIA - Discharge Planning Initial Assessment Updated by [email or web address]: Lupis Dunbar on 05/31/18 4:12 pm * Is the patient Alert and Oriented? Yes * How many steps to enter\exit or inside your home? NONE * PCP JONATHAN WAYNE PER THE PATIENT AND HIS SISTER, ADAIR FRANCO * Pharmacy [facility] IN [place] * Preadmission Environment Home with Family * ADLs Independent * Equipment Cane * Other Equipment N/A DENIES AN ADDITIONAL DME * List name and contact numbers for known caregivers / representatives who currently or will assist patient after discharge: ADAIR WEST - SISTER- [phone] * Community resources currently utilized None * Please name any agencies selected above. N/A * Additional services required to return to the preadmission environment? No * Can the patient safely return to the preadmission environment? Yes * Has this patient been hospitalized within the prior 30 days at any hospital? Yes Coverage Notice Reviewer: [email or web address] Dinora Dunbar Notice Issued Date-Time: 05/31/2018 14:05 Notice Type: IM Discharge Notice Notice Delivered To: Patient Relationship to Patient: Can Closing Machine Tender Name: Delivery Method: - Lila Days: Prior Verbal Notification: Recipient Understood Notice: Recipient Signature: Med Rec Note Co-signed by Attending: Coverage Notice Comment: Last DP export: 05/31/18 3:17 p Patient Name: EHSAN WEST Page 11197 at 1643 All edits/amendments must be made on the electronic document DICTATION DATE: 05/31/181641 STRETCHING PRESS OPERATOR: BAKARI 05/31/181641 RPT#: [id number] DC DATE:05/31/18 STATUS: DIS IN [facility] [address] [place] [address] END OF REPORT
--- NOTE | ~2018-05-27 | MORECARE ---
CASE MANAGEMENT DISCHARGE SUMMARY PATIENT: EHSAN WEST UNIT: [id number] ADM DATE: 05/27/18 AGE: 57 : 62 SEX: M ROOM/BED: D.1209 AUTHOR: EDUARDO ABDI PHYSICIAN: REFERRING PHYSICIAN: MELBA MELGAR MD DATE OF SERVICE: 05/31/18 Discharge Plan Patient Name: EHSAN WEST Facility: [facility]:[place] : 1960 Planned Disposition: Home Anticipated Discharge Date: 05/31/18 Discharge Date: 05/31/2018 Expected LOS: 4 Initial Reviewer: [email or web address] Initial Review Date: 05/27/2018 Generated: 05/31/18 5:17 pm Comments DCP- Discharge Planning Updated by [email or web address]: Miley Arambula on 05/30/18 2:[address] CM attempted to see patient again today patient gone for procedure at this time. CM will continue to follow and assist with discharge planning / needs. DCPIA - Discharge Planning Initial Assessment Updated by [email or web address]: Lupis Dunbar on 05/31/18 4:12 pm * Is the patient Alert and Oriented? Yes * How many steps to enter\exit or inside your home? NONE * PCP JONATHAN WAYNE PER THE PATIENT AND HIS SISTER, ADAIR FRANCO * Pharmacy [facility] IN [place] * Preadmission Environment Home with Family * ADLs Independent * Equipment Cane * Other Equipment N/A DENIES AN ADDITIONAL DME * List name and contact numbers for known caregivers / representatives who currently or will assist patient after discharge: ADAIR WEST - SISTER- [phone] * Community resources currently utilized None * Please name any agencies selected above. N/A * Additional services required to return to the preadmission environment? No * Can the patient safely return to the preadmission environment? Yes * Has this patient been hospitalized within the prior 30 days at any hospital? Yes Last DP export: 05/31/18 3:11 p Patient Name: EHSAN WEST Page [id number] at 1618 All edits/amendments must be made on the electronic document DICTATION DATE: 05/31/181616 POWER CRANE OPERATOR: BAKARI 05/31/181616 RPT#: [id number] DC DATE:05/31/18 STATUS: DIS IN [facility] [address] [place] [address] END OF REPORT
--- NOTE | ~2018-05-27 | MORECARE ---
CASE MANAGEMENT DISCHARGE SUMMARY PATIENT: EHSAN WEST UNIT: [id number] ADM DATE: 05/27/18 AGE: 57 : 62 SEX: M ROOM/BED: D.1209 AUTHOR: TRINIDAD,DOC PHYSICIAN: REFERRING PHYSICIAN: MELBA MELGAR MD DATE OF SERVICE: 06/03/18 Discharge Plan Patient Name: EHSAN WEST Facility: [facility]:[place] : 1960 Planned Disposition: Home Anticipated Discharge Date: 05/31/18 Discharge Date: 05/31/2018 Expected LOS: 4 Initial Reviewer: [email or web address] Initial Review Date: 05/27/2018 Generated: 06/03/18 9:42 pm Comments DCP- Discharge Planning Updated by [email or web address]: Lupis Dunbar on 05/31/18 4:[address] LATE ENTRY 1315 CM MET WITH PATIENT REGARDING DISCHARGE PLANS AND NEEDS. CM INTRODUCED SELF AND EXPLAINED ROLE OF CM . PATIENT STATED HE DID NOT NEED HOME HEALTH OR SERVICES IF HE DID HE KNEW HOW TO GET THEM. HE GAVE PERMISSION FOR CM TO SPEAK WITH HIS SISTER HE WAS WATCHING TV. HE WOULD NOT MAKE EYE CONTACT WITH CM WHILE SPEAKING WITH CM. HE HAD STATED HE LIVES WITH HIS SISTER, JOAN. SHE IS AT [facility] AND STATES HER NAME IS ADAIR WEST. SHE WILL PROVIDE TRANSPORTATION TO HOME. HE HAS TRANSPORTATION TO [facility]. PCP- NURSING ASSESSMENT STATES PCP- DR BOUCHER. PATIENT STATED HE SEES JONATHAN CARRANZA. PHARMACY- [facility] [place] DME- [facility]. DENIES ANY ADDITIONAL DME. PATIENT AND HIS SISTER DENIES ANY NEEDS. CM EXPLAINED DISCHARGE IMM. PATIENT AND SISTER STATED THEY UNDERSTOOD. PATIENT STATED TO HAVE HIS SISTER SIGN. DCP- Discharge Planning Updated by [email or web address]: Miley Arambula on 05/30/18 3:[address] CM attempted to see patient again today patient gone for procedure at this time. CM will continue to follow and assist with discharge planning / needs. DCPIA - Discharge Planning Initial Assessment Updated by [email or web address]: Lupis Dunbar on 05/31/18 4:12 pm * Is the patient Alert and Oriented? Yes * How many steps to enter\exit or inside your home? NONE * PCP JONATHAN WAYNE PER THE PATIENT AND HIS SISTER, ADAIR FRANCO * Pharmacy [facility] IN [place] * Preadmission Environment Home with Family * ADLs Independent * Equipment Cane * Other Equipment N/A DENIES AN ADDITIONAL DME * List name and contact numbers for known caregivers / representatives who currently or will assist patient after discharge: ADAIR WEST - SISTER- [phone] * Community resources currently utilized None * Please name any agencies selected above. N/A * Additional services required to return to the preadmission environment? No * Can the patient safely return to the preadmission environment? Yes * Has this patient been hospitalized within the prior 30 days at any hospital? Yes Coverage Notice Reviewer: [email or web address] Dinora Dunbar Notice Issued Date-Time: 05/31/2018 14:05 Notice Type: IM Discharge Notice Notice Delivered To: Patient Relationship to Patient: Hospital Security Officer Name: Delivery Method: HAND - Hand Delivered Lila Days: Prior Verbal Notification: Recipient Understood Notice: Yes Recipient Signature: Yes Med Rec Note Co-signed by Attending: Coverage Notice Comment: CM EXPLAINED DISCHARGE IMM TO THE PATIENT AND HIS SISTER. HE STATED WHEN SIGNATURE WAS REQUESTED TO LET HIS SISTER, ADAIR WEST TO SIGN. NO QUESTIONS. BOTH STATED THEY UNDERSTOOD. Last DP export: 05/31/18 4:43 p Patient Name: EHSAN WEST Page [phone] at 2042 All edits/amendments must be made on the electronic document DICTATION DATE: 06/03/182041 PASSENGER SERVICE AGENT: BAKARI 06/03/182041 RPT#: [id number] DC DATE:05/31/18 STATUS: DIS IN [facility] [address] [facility] [place] [address] END OF REPORT
--- NOTE | ~2018-05-27 | MORECARE ---
CASE MANAGEMENT DISCHARGE SUMMARY PATIENT: EHSAN WEST UNIT: [id number] ADM DATE: 05/27/18 AGE: 57 : 62 SEX: M ROOM/BED: D.1209 AUTHOR: EDUARDO ABDI PHYSICIAN: REFERRING PHYSICIAN: MELBA MELGAR MD DATE OF SERVICE: 05/30/18 Discharge Plan Patient Name: EHSAN WEST [facility] [facility] 1960 Planned Disposition: Anticipated Discharge Date: Discharge Date: Expected LOS: Initial Reviewer: [email or web address] Initial Review Date: 05/27/2018 Generated: 05/30/18 4:39 pm Comments DCP- Discharge Planning Updated by [email or web address]: Miley Arambula on 05/30/18 2:[address] CM attempted to see patient again today patient gone for procedure at this time. CM will continue to follow and assist with discharge planning / needs. Last DP export: 05/28/18 11:14 Patient Name: EHSAN WEST Page [phone] at 1539 All edits/amendments must be made on the electronic document DICTATION DATE: 05/30/18 153 LANDFILL GAS TECHNICIAN: BAKARI 05/30/18 153 RPT#: [id number] DC DATE: STATUS: ADM IN [facility] [address] [place] [address] END OF REPORT
[2018-05-27 19:54] VITALS: BP 110/58; BMI 18.6
[2018-05-27 20:23] VITALS: BP 116/70
[2018-05-27] MEDS ORDERED: AMIODARONE HCL200 MG PO (22:04)
[2018-05-27] MEDS ORDERED: LOPRESSOR25 MG PO (22:06)
[2018-05-27] MEDS ORDERED: BENTYL 20 MG TA20 MG PO (22:11)
[2018-05-27] MEDS ORDERED: LANOXIN125 MCG PO (22:41)
[2018-05-27] MEDS ORDERED: RENVELA800 MG PO (22:43)
[2018-05-27] MEDS ORDERED: NEPHRO-VITE RX1 TAB PO (22:44)
[2018-05-27] MEDS ORDERED: SENSIPAR60 MG PO (23:28)
[2018-05-27] MEDS ORDERED: ALBUTEROL SULF8.5 GM INH (23:29)
[2018-05-27] MEDS ORDERED: LOVENOX30 MG/0.3 SC (23:30)
[2018-05-27] MEDS ORDERED: CHLORASEPTIC177 ML TOPICAL (23:31)
[2018-05-27] MEDS ORDERED: TESSALON PERLE100 MG PO (23:32)
[2018-05-27] MEDS ORDERED: ATARAX 25 MG TA25 MG PO (23:33)
[2018-05-27] MEDS ORDERED: NUTRISOURCE FI1 EACH PO (23:34)
[2018-05-27] MEDS ORDERED: MULTAQ400 MG PO (23:35)
[2018-05-28] VITALS (7 sets, daily range): BP systolic 118–140; BP diastolic 69–89; Ht 167.6 cm; Wt 54.1 kg
[2018-05-28 06:57] LABS: ANION GAP 13.7 mmol/L (8-16); CALCIUM 8.6 mg/dL (8.5-10.1); CARBON DIOXIDE 28.2 mmol/L (21.0-32.0); CREATININE - SERUM 6.6 mg/dL (0.6-1.3); POTASSIUM - SERUM 4.9 mmol/L (3.5-5.1)
[2018-05-28 07:03] LABS: BASOPHILS 0.4 % (0-2); EOSINOPHILS 11.3 % (0-7); HEMOGLOBIN 10.1 g/dL (13.5-17.5); IMMATURE GRANULOCYTES 0.8 % (0-5); LYMPHOCYTES 20.2 % (15-50); MCH 28.6 pg (26.0-34.0); MCHC 32.6 g/dL (31.0-37.0); MCV 87.8 fL (80.0-100.0); MEAN PLATELET VOLUME 10.7 fL (7.4-10.4); MONOCYTES 12.7 % (2-11); NEUTROPHILS 54.6 % (40-80); RBC 3.53 10x6/uL (4.20-6.10); RDW 17.8 % (11.5-14.5); WBC 7.8 10x3/uL (4.8-10.8)
[2018-05-28 07:14] LABS: PLATELET COUNT 261 10x3/uL (130-400)
[2018-05-28 08:09] LABS: ALBUMIN 2.4 g/dL (3.4-5.0); BILIRUBIN - TOTAL 2.8 mg/dL (0.2-1.3)
[2018-05-28 09:56] LABS: INR 1.24 (0.85-1.17); PROTIME 15.2 SECONDS (11.6-15.0)
[2018-05-29 04:51] VITALS: BP 121/73
[2018-05-29 06:28] LABS: BASOPHILS 0.2 % (0-2); EOSINOPHILS 9.3 % (0-7); HEMATOCRIT 30.1 % (42.0-54.0); HEMOGLOBIN 9.8 g/dL (13.5-17.5); IMMATURE GRANULOCYTES 0.5 % (0-5); LYMPHOCYTES 16.8 % (15-50); MCH 28.8 pg (26.0-34.0); MCHC 32.6 g/dL (31.0-37.0); MCV 88.5 fL (80.0-100.0); MEAN PLATELET VOLUME 9.6 fL (7.4-10.4); MONOCYTES 12.8 % (2-11); NEUTROPHILS 60.4 % (40-80); PLATELET COUNT 246 10x3/uL (130-400); RDW 18.4 % (11.5-14.5); WBC 8.4 10x3/uL (4.8-10.8)
[2018-05-29 06:39] LABS: PROTIME 17.6 SECONDS (11.6-15.0)
[2018-05-29 06:43] LABS: INR 1.5 (0.85-1.17)
[2018-05-29 06:50] LABS: ALBUMIN 2.4 g/dL (3.4-5.0); ANION GAP 16.8 mmol/L (8-16); BILIRUBIN - TOTAL 6.73 mg/dL (0.2-1.3); CALCIUM 8.8 mg/dL (8.5-10.1); CARBON DIOXIDE 26.7 mmol/L (21.0-32.0); CREATININE - SERUM 6.7 mg/dL (0.6-1.3); PHOSPHOROUS 5.6 mg/dL (2.5-4.9); POTASSIUM - SERUM 5.5 mmol/L (3.5-5.1); PROTEIN - SERUM 5.9 g/dL (6.4-8.2)
[2018-05-29 07:49] VITALS: BP 124/83
[2018-05-29 08:00] VITALS: BP 111/79
[2018-05-29 12:43] VITALS: BP 119/80
[2018-05-29 16:09] VITALS: BP 112/77
[2018-05-30 01:44] VITALS: BP 115/68
[2018-05-30 06:18] LABS: BASOPHILS 0.1 % (0-2); EOSINOPHILS 0.1 % (0-7); HEMATOCRIT 30.6 % (42.0-54.0); IMMATURE GRANULOCYTES 0.5 % (0-5); LYMPHOCYTES 10.4 % (15-50); MCH 29.1 pg (26.0-34.0); MCHC 32.7 g/dL (31.0-37.0); MEAN PLATELET VOLUME 10.4 fL (7.4-10.4); MONOCYTES 8.2 % (2-11); NEUTROPHILS 80.7 % (40-80); RBC 3.44 10x6/uL (4.20-6.10); RDW 18.9 % (11.5-14.5); WBC 8.8 10x3/uL (4.8-10.8)
[2018-05-30 06:19] LABS: PLATELET COUNT 297 10x3/uL (130-400)
[2018-05-30 06:43] LABS: ALBUMIN 2.4 g/dL (3.4-5.0); ANION GAP 16.7 mmol/L (8-16); CARBON DIOXIDE 25.8 mmol/L (21.0-32.0); CREATININE - SERUM 7.9 mg/dL (0.6-1.3); POTASSIUM - SERUM 5.5 mmol/L (3.5-5.1); PROTEIN - SERUM 6.2 g/dL (6.4-8.2)
[2018-05-30 08:04] VITALS: BP 126/77
[2018-05-30 12:03] VITALS: BP 107/77
[2018-05-30 20:00] VITALS: BP 138/78
[2018-05-30 21:26] VITALS: BP 132/78
[2018-05-31 00:14] VITALS: BP 120/70
[2018-05-31 04:34] VITALS: BP 126/87
[2018-05-31 06:11] LABS: BASOPHILS 0.1 % (0-2); EOSINOPHILS 0.4 % (0-7); HEMATOCRIT 30.7 % (42.0-54.0); HEMOGLOBIN 10.2 g/dL (13.5-17.5); IMMATURE GRANULOCYTES 0.7 % (0-5); LYMPHOCYTES 14.6 % (15-50); MCH 29.1 pg (26.0-34.0); MCHC 33.2 g/dL (31.0-37.0); MCV 87.7 fL (80.0-100.0); MEAN PLATELET VOLUME 10.1 fL (7.4-10.4); MONOCYTES 13.4 % (2-11); NEUTROPHILS 70.8 % (40-80); PLATELET COUNT 312 10x3/uL (130-400); RDW 18.9 % (11.5-14.5); WBC 10.1 10x3/uL (4.8-10.8)
[2018-05-31 06:40] LABS: ALBUMIN 2.5 g/dL (3.4-5.0); ANION GAP 18.3 mmol/L (8-16); BILIRUBIN - TOTAL 7.6 mg/dL (0.2-1.3); CALCIUM 8.7 mg/dL (8.5-10.1); CARBON DIOXIDE 25.6 mmol/L (21.0-32.0); CREATININE - SERUM 6.4 mg/dL (0.6-1.3); POTASSIUM - SERUM 4.9 mmol/L (3.5-5.1); PROTEIN - SERUM 6.3 g/dL (6.4-8.2)
[2018-05-31 08:01] VITALS: BP 107/79
== END 2018-05-31 14:45 | disposition home or self-care (01) | DRG 417 ==
LOC: D.M3 13:55
PROVIDERS: Family Medicine; Internal Medicine; Internal Medicine Gastroenterology; Surgery
PROC: 0FD98ZX Extraction of Common Bile Duct, Via Natural or Artificial Opening Endoscopic, Diagnostic (ICD-10-PCS; 2018-05-28)
PROC: BF101ZZ Fluoroscopy of Bile Ducts using Low Osmolar Contrast (ICD-10-PCS; 2018-05-29)
PROC: 0FT44ZZ Resection of Gallbladder, Percutaneous Endoscopic Approach (ICD-10-PCS; principal; 2018-05-29 11:15)
PROC: 0WQF4ZZ Repair Abdominal Wall, Percutaneous Endoscopic Approach (ICD-10-PCS; 2018-05-29 11:15)
PROC: 0FB14ZX Excision of Right Lobe Liver, Percutaneous Endoscopic Approach, Diagnostic (ICD-10-PCS; 2018-05-29 11:15)
DX: K81.0 Acute cholecystitis (principal); N18.6 End stage renal disease; F17.213 Nicotine dependence, cigarettes, with withdrawal; N25.81 Secondary hyperparathyroidism of renal origin; I42.9 Cardiomyopathy, unspecified; I12.0 Hypertensive chronic kidney disease with stage 5 chronic kidney disease or end stage renal disease; E78.5 Hyperlipidemia, unspecified; Z99.2 Dependence on renal dialysis; I48.91 Unspecified atrial fibrillation; K43.9 Ventral hernia without obstruction or gangrene